=== PATIENT | male | born 1960 | race Caucasian/White ===

== ENCOUNTER → 2018-09-16 | Outpatient (CLI) | payer BC ==
[2018-09-16] VITALS (14 sets, daily range): BP systolic 140–174; BP diastolic 90–104
[~2018-09-16] MED LIST: CARDIZEM CD120 MG PO; ELIQUIS5 MG PO; FLECAINIDE ACET50 M1 PO
--- NOTE | ~2018-09-16 | CARD ---
[address] [address] CARDIAC CATH REPORT Name: SULEIMAN SOSA Room: [facility]..#: [id number] Admission: 09/16/18 Attend Phys: Jerod Block MD Discharge: Date of : 56 Report #: [id number] THIS REPORT FOR: //name// CC: Jerod Song DATE OF SERVICE: 09/16/2018 PROCEDURE: Outpatient direct current cardioversion. INDICATIONS: Atrial fibrillation. The patient was treated with 30 days of Eliquis and flecainide prior to his procedure. He was found to be in atrial fibrillation on presentation. CONSENT: The risks and benefits of the procedure described to the patient in lay terms. DESCRIPTION OF PROCEDURE: The patient was taken to the cardiac catheterization holding area where the procedure was performed, usual cardiac monitoring with heart rate, blood pressure, respiratory rate and oxygen saturations were utilized. After informed consent, the patient was sedated, please see dosing record for totals of Versed and fentanyl. After an adequate level of sedation was obtained, the patient was cardioverted with biphasic 200-joule synchronized to a sinus rhythm, but then, he reverted back to atrial fibrillation. We attempted another 200-joule cardioversion and the patient was unsuccessfully cardioverted and maintained atrial fibrillation with heart rates in the low one-teens and stable blood pressures. COMPLICATIONS: None. IMPRESSION: 1. Unsuccessful cardioversion. 2. Paroxysmal atrial fibrillation. By: 1200 2032Jerod Block MD, FACC /nt
[2018-09-16 10:02] LABS: HEMATOCRIT 44.1 % (42.0-52.0); HEMOGLOBIN 15.4 gm/dL (14.0-18.0); MCH 30.6 pg (26.0-34.0); MCHC 34.9 g/dL (28.0-37.0); MCV 87.8 fL (80.0-100.0); MPV 9.4 fl. (7.2-11.1); RBC 5.02 mil/uL (4.50-6.00); RDW-CV 13.4 % (10.5-14.5); WBC 7.6 thou/uL (4.0-11.0)
[2018-09-16 10:10] LABS: CALCIUM 9.1 mg/dL (8.5-10.1); CREATININE 0.9 mg/dL (0.6-1.3); POTASSIUM 4.1 mmol/L (3.5-5.1)
[2018-09-16 10:14] LABS: ALBUMIN 3.6 g/dL (3.4-5.0); TOTAL BILIRUBIN 0.8 mg/dL (<0.1-1.0); TOTAL PROTEIN 7.3 g/dL (6.4-8.2)
--- NOTE | 2018-09-16 10:57 | EKG ---
[place] [address] ELECTROCARDIOGRAM REPORT Name: SULEIMAN SOSA Room: [facility]#: [id number] Admission: 09/16/18 Attend Phys: Jerod Block MD Discharge: Date of : 56 Report #: [id number] THIS REPORT FOR: //name// [facility] Test Date: 2018-09-16 Test Time: 09:34:47 Pat Name: SULEIMAN SOSA Department: Room: Gender: M Client Experience Consultant: : [id number] Requested By: Jerod Block Order Number: [id number] Reading MD: Jerod Block Measurements Intervals [place] Rate: 97 P: [place]: QRS: -70 QRSD: 99 T: 12 QT: 348 QTc: 442 Interpretive Statements Atrial fibrillation Ventricular premature complex Abnormal R-wave progression, late transition Inferior infarct, old No previous ECG available for comparison Electronically Signed On 09-16-2018 10:57:24 CDT by Jerod Block [email or web address] <ELECTRONICALLY SIGNED> By: Jerod Block MD, [facility] 09/16/18 1057 3 Jerod Block MD, FAC /EPI
== END | disposition home or self-care (01) ==
LOC: M.CL 09:16
PROVIDERS: Internal Medicine Cardiovascular Disease
DX: I48.0 Paroxysmal atrial fibrillation (principal); Z79.01 Long term (current) use of anticoagulants; Z79.899 Other long term (current) drug therapy